=== PATIENT | male | born 1990 | race Caucasian/White ===

== ENCOUNTER 2025-03-22 10:37 | Emergency (ER) | payer MEDICAID, SELFPAY ==
[2025-03-22 10:38] VITALS: BP 122/85; PULSE 73; RESP 16; TEMP 36.3; O2SAT 100
--- NOTE | 2025-03-22 11:17 | EX.ED.DYSGE1 ---
HPI History of Present Illness Chief Complaint: Lower Extremity Injury Narrative Narrative: Chief complaint and HPI: 34-year-old male with past medical history of anxiety and depression presents for evaluation of bruising to the left big toe. Patient states several days ago he fell in which he developed pain mostly in the left big toe as well as the foot. States it started to bruise. States he has continued to have pain despite ambulating on the foot. Concerned it is possibly fractured. States he developed some swelling in the foot as well as redness. He denies any fever, chills, numbness/tingling, nausea, vomiting. Review of systems: See HPI Medications: As listed on the chart Allergies: As listed on the chart PFSH: Per chart Vital signs: As listed on the chart. Reviewed. Physical exam: Gen: A&O x3, NAD Head: Normocephalic, atraumatic Eyes: No sclera icterus, conjunctiva clear ENT: Moist mucous membranes CV: RRR, no murmurs Resp: Lungs CTA BL, no w/r/c Musc: Full range of motion of all the extremities including the left lower extremity, patient has swelling to the left foot compared to the right, mild erythema on the dorsum of the foot extending from the first toe, ecchymosis to the first toe which is tender to palpation, no tenderness to palpation of the ankle, DP/PT pulses +2 bilaterally, good capillary refill, compartments soft, no red/warm/or swollen joints Skin: Warm, dry Neuro: Alert, oriented, grossly intact, sensation intact Psych: Cooperative, appropriate mood and affect [facility] Medical History (Updated 03/22/25 @ 11:07 by Dawna Bullock) Anxiety Depression Allergy/AdvReac Type Severity Reaction Status Date / Time Sulfa (Sulfonamide Allergy Severe Rash Verified 03/22/25 10:40 Antibiotics) Family History no significant family his Surgical History no surgical history Social History Smoking Status: Current every day smoker tobacco type: cigarettes EXAM Physical Exam Const Vital Signs: 03/22/25 10:38 Temperature 97.4 F L Temperature Source Temporal Pulse Rate 73 Respiratory Rate 16 Blood Pressure 122/85 H Blood Pressure Mean 97 Pulse Ox 100 Oxygen Delivery Method Room Air MDM MDM MDM Narrative Medical decision making narrative: 34-year-old male with past medical history of anxiety and depression presents for evaluation of bruising to the left big toe. Patient states several days ago he fell in which he developed pain mostly in the left big toe as well as the foot. States it started to bruise. States he developed some swelling in the foot as well as redness. On presentation, patient no acute distress. Nontoxic-appearing. Vitals are stable. See physical exam findings. Differential diagnosis includes but is not limited to fracture, contusion, sprain, cellulitis. Exam is not consistent with septic arthritis. Will perform basic labs and x-ray of the foot.CBC leukocytosis of 12.3 otherwise unremarkable. BMP unremarkable. X-ray of the foot was personally viewed interpreted by me, ED physician. No obvious fracture or dislocation. Radiology in agreement. Patient symptoms are likely secondary to toe contusion as well as early cellulitis. Will place him on Keflex and doxycycline given his allergy to Bactrim. Follow-up with PCP. Return precautions explained. He confirmed understand the plan. First doses of antibiotics given here. His cellulitis was outlined with a marker. Tylenol and Motrin as needed for pain. Impression: 1. Left big toe contusion 2. Left foot cellulitis Lab Data Labs: Laboratory Results - last 24 hr 03/22/25 11:25 WBC 12.3 H RBC 4.59 L Hgb 13.7 Hct 40.1 MCV 87.4 MCH 29.8 MCHC 34.2 RDW Std Deviation 42.6 RDW Coeff of Paula 13.4 Plt Count 221 MPV 9.4 Immature Gran % (Auto) 0.200 Neut % (Auto) 56.5 Lymph % (Auto) 23.2 Woodruff % (Auto) 6.9 Eos % (Auto) 12.3 H Baso % (Auto) 0.9 Absolute Neuts (auto) 6.9 Absolute Lymphs (auto) 2.86 Nucleated RBC % 0 Sodium 140 Potassium 3.9 Chloride 105 Carbon Dioxide 22.6 Anion Gap 13 BUN 10 Creatinine 0.86 Est GFR (MDRD) Non-Af 116 BUN/Creatinine Ratio 11.1 Glucose 81 Calcium 9.4 Radiography Diagnostic Testing: Clinical Impression(s) from Imaging Studies Foot X-Ray 03/22/25 11:30 IMPRESSION: No acute abnormality Reading Location: [id number] Discharge Plan Triage Chief Complaint: Lower Extremity Injury ED Provider: Von Guan Dx/Rx/DC Orders Primary Care Provider: Care Physician,No Primary Referrals: Care Physician,No Primary [Primary Care Provider, Medical] Print Language: Nigerien
[2025-03-22] MEDS: HYDROcodone Bitartrate/Apap 5/325 Tablet PO (11:24)
--- NOTE | 2025-03-22 11:30 | RAD_ITS ---
PROCEDURE: FOOT MIN 3 VIEWS 03/22/2025 REASON FOR EXAM: PAIN TECHNIQUE: Procedure Code: RADFO Modality: DX Procedure: FOOT MIN 3 VIEWS Laterality: Left COMPARISON: None FINDINGS: Bones: No fracture Joints: Normal alignment. Soft tissues: Soft tissues are unremarkable. Other: No foreign body RAD/Foot min 3 Views IMPRESSION: No acute abnormality Reading Location: [id number]
[2025-03-22 11:32] LABS: Hematocrit 40.1 % (40-54); Hemoglobin 13.7 g/dL (13.0-16.5); Immature Granulocytes Count 0.030 X10^3/uL (0.0-0.0); Mean Corp Hgb Conc 34.2 g/dL (32-36); Mean Corpuscular Volume 87.4 fL (80-94); Mean Platelet Vol. 9.4 fl (6.2-12.0); NRBC Flagged by Analyzer 0 % (0-5); Platelet Count 221 K/mm3 (150-450); RBC Distribution Width CV 13.4 % (11.6-14.6); RBC Distribution Width SD 42.6 fl (35.1-43.9); Red Blood Count 4.59 M/mm3 (4.6-6.2); White Blood Count 12.3 K/mm3 (4.4-11.0)
[2025-03-22 11:55] LABS: Anion Gap 13 (5-15); BUN 10 mg/dL (4-19); BUN/Creat Ratio 11.1 RATIO (10-20); Calcium,Total 9.4 mg/dL (7.6-11.0); Carbon Dioxide 22.6 mmol/L (21.0-32.0); Chloride 105 mmol/L (98-108); Glucose 81 mg/dL (70-99); Potassium 3.9 mmol/L (3.3-5.1)
[2025-03-22 12:45] VITALS: BP 138/84; PULSE 73; RESP 18; TEMP 36.4; O2SAT 100
== END 2025-03-22 12:46 | disposition home or self-care (01) ==
PROVIDERS: Emergency Provider Surgery; Visit Provider Surgery
DX: S90.112A Contusion of left great toe without damage to nail, initial encounter (principal); W19.XXXA Unspecified fall, initial encounter; L03.116 Cellulitis of left lower limb; F17.210 Nicotine dependence, cigarettes, uncomplicated
CPT/HCPCS: 73630; 80048; 85025; 99282